=== PATIENT | female | born 1990 | race African-American/Black ===

== ENCOUNTER 2022-06-08 12:03 | Emergency (ER) | payer MEDICARE ==
[~2022-06-08] VITALS: Ht 152.4 cm; Wt 82.0 kg
[2022-06-08 12:09] VITALS: BP 150/117
[2022-06-08] MEDS ORDERED: ACETAMINOPHEN 500MG TABLET PO ONE (14:00)
[2022-06-08] MEDS ORDERED: KETOROLAC 30MG/ML VIAL IM ONE (14:00)
[2022-06-08] MEDS ORDERED: ACET-2708 MT (14:06)
[2022-06-08] MEDS ORDERED: GUAI600T26 MT (14:06)
== END 2022-06-08 15:00 | disposition home or self-care (01) ==
LOC: ER 12:51
DX: B34.9 Viral infection, unspecified (principal); I10 Essential (primary) hypertension; Z20.822 Contact with and (suspected) exposure to COVID-19
CPT/HCPCS: 81025; 87426; 96372; 99283; C9803; J1885